=== PATIENT | male | born 1965 | race Caucasian/White ===

== ENCOUNTER → 2022-10-21 10:10 | Outpatient (BNVA) | payer BC, SELFPAY | PROVIDERS: Visit Provider Family Medicine | DX: E78.5 Hyperlipidemia, unspecified (principal); I10 Essential (primary) hypertension | CPT/HCPCS: 80053; 80061 ==

== ENCOUNTER → 2022-10-21 11:09 | Outpatient (BNVA) | payer BC, SELFPAY | PROVIDERS: Visit Provider Family Medicine | DX: I10 Essential (primary) hypertension (principal); F41.1 Generalized anxiety disorder; E78.5 Hyperlipidemia, unspecified; R06.02 Shortness of breath; B07.9 Viral wart, unspecified | CPT/HCPCS: 71046; 80053; 80061 ==

== ENCOUNTER → 2022-10-26 08:59 | Outpatient (BNVA) | payer BC, SELFPAY | PROVIDERS: PCP Family Medicine; Visit Provider Family Medicine | DX: I10 Essential (primary) hypertension (principal); E78.5 Hyperlipidemia, unspecified | CPT/HCPCS: 80053; 80061 ==

== ENCOUNTER 2022-11-04 14:15 | Outpatient (CLI) | payer BC, SELFPAY ==
--- NOTE | 2022-11-04 14:30 | USCV_ITS ---
Joel Mcwilliams Age: 57 Gender: M : 1965 Exam Date: 11/04/2022 15:25 Ordering Phys: Cara Lino MD Technologist: Diane Villasenor Exam Location: [facility] [place] Indication: SOB AND HTN BP: 140 / 90 HR: 69 Rhythm: Sinus Technical Quality: Adequate MEASUREMENTS (Male / Female) Normal Values 2D ECHO LV Diastolic Diameter PLAX 5.0 cm 4.2 - 5.9 / 3.9 - 5.3 cm LV Systolic Diameter PLAX 3.5 cm LV Chamber Size 3.2 cm IVS Diastolic Thickness 0.9 cm 0.6 - 1.0 / 0.6 - 0.9 cm IVS Systolic Thickness 1.7 cm LVPW Diastolic Thickness 1.3 cm 0.6 - 1.0 / 0.6 - 0.9 cm LVPW Systolic Thickness 1.8 cm RV Chamber Size 3.5 cm LVOT Diameter 2.0 cm LV Ejection Fraction 2D Teich 57.7 % LV Ejection Fraction MOD 2C 37.6 % LV Ejection Fraction 2C AL 35.4 % LA Diameter 3.9 cm LA Width 3.0 cm LA Height 4.7 cm RA Width 4.0 cm RA Height 3.8 cm Aorta at Sinotubular Diameter 3.1 cm IVC Diameter 2.6 cm M-MODE Aortic Annulus Diameter 3.2 cm LA Ao Ratio MM 1.6 MV E Point Septal Separation 0.2 cm DOPPLER AV Peak Velocity 123.0 cm/s LVOT Peak Velocity 74.0 cm/s AV Area Cont Eq vti 2.7 cm squared AV Area Cont Eq pk 1.9 cm squared MV Area PHT 3.7 cm squared Mitral E to A Ratio 1.3 MV E' Velocity 50.0 cm/s Mitral E to MV E' Ratio 10.4 Mitral E to LV E' Lateral Ratio 9.4 Mitral E to LV E' Septal Ratio 11.7 TR Peak Velocity 153.9 cm/s TR Peak Gradient 9.5 mmHg TR Mean Velocity 122.2 cm/s TR Mean Gradient 6.8 mmHg TR Velocity Time Integral 38.7 cm TV Peak E Velocity 54.0 cm/s RV Acceleration Time 0.1 s RV Ejection Time 0.3 s RV AcT/ET 0.5 FINDINGS Left Ventricle Normal left ventricular size and systolic function, EF 39 %. No regional wall motion abnormalities. Grade I/IV diastolic dysfunction (abnormal relaxation filling pattern), normal to mildly elevated filling pressures. Right Ventricle The right ventricle is normal in size and function. Right Atrium The right atrium is normal in size. Left Atrium Mildly increased left atrial size. Mitral Valve Thickened mitral valve. Aortic Valve No gross abnormalities noted Tricuspid Valve Trace tricuspid valve regurgitation. Pulmonic Valve No gross abnormalities noted. Trace of pulmonic regurgitation Pericardium Normal pericardium without effusion. Aorta Normal ascending aorta dimension. IVC The inferior vena cava appears normal. CONCLUSIONS Normal left ventricular size and systolic function, EF 39 %. No regional wall motion abnormalities. Grade I/IV diastolic dysfunction (abnormal relaxation filling pattern), normal to mildly elevated filling pressures. Trace tricuspid valve regurgitation. Trace of pulmonic regurgitation. There is no pericardial effusion. There are no intracardiac masses. No similar previous studies are available for comparison Dr Prudencio Rowland MD FACC (Electronically Signed) Final Date: 06 Nov 2022 16:11 S
== END 2022-11-04 14:16 | disposition home or self-care (01) ==
PROVIDERS: PCP Family Medicine; Visit Provider Family Medicine
DX: I10 Essential (primary) hypertension (principal); R06.02 Shortness of breath; I51.7 Cardiomegaly
CPT/HCPCS: 80053; 80061; 93306

== ENCOUNTER → 2023-04-14 09:24 | Outpatient (BNVA) | payer BC, SELFPAY | PROVIDERS: PCP Family Medicine; Visit Provider Family Medicine | DX: Z23 Encounter for immunization (principal); I10 Essential (primary) hypertension; R73.03 Prediabetes; N18.31 Chronic kidney disease, stage 3a; G47.10 Hypersomnia, unspecified; R06.83 Snoring; I50.9 Heart failure, unspecified; I50.42 Chronic combined systolic (congestive) and diastolic (congestive) heart failure | CPT/HCPCS: 80048; 83036 ==